=== PATIENT | male | born 1995 | race Caucasian/White ===

== ENCOUNTER 2018-08-21 20:36 | Emergency (ER) | payer OTHER ==
[~2018-08-21] VITALS: Ht 182.9 cm; Wt 68.0 kg
[2018-08-21 20:36] VITALS: BP_SYST 114
[2018-08-21 21:10] VITALS: BP_SYST 114
== END 2018-08-21 21:10 ==
LOC: SED 20:36
DX: Z02.83 Encounter for blood-alcohol and blood-drug test (principal)